=== PATIENT | female | born 1960 | race Caucasian/White ===

== ENCOUNTER → 2019-02-23 | Outpatient (REF) | payer OTHER ==
[~2019-02-23] MED LIST: CITA40TA4 PO; COLA100C5 PO; FERR325T3 PO; IBUP600T42 PO; LEVO75TA4 PO; OMEP20TA PO; SUMA100T2 PO; VICO5TAB17 PO; thyroxine OR
== END ==
LOC: M LABCFH 08:14 → M LAB REF 02-26 11:14
DX: R39.89 Other symptoms and signs involving the genitourinary system (principal)

== ENCOUNTER → 2019-02-24 | Outpatient (REF) | payer OTHER | LOC: M LABCFH 13:18 | PROVIDERS: ATTEND Registered Nurse | DX: R31.9 Hematuria, unspecified (principal) ==

== ENCOUNTER → 2021-04-03 | Outpatient (CLI) | payer OTHER ==
[~2021-04-03] MED LIST changes: +GLUCAGON INJ 1MG VIAL As Ordered ONE; +ISOVUE-370 76% 100ML VIAL As Ordered ONE; +OMEP-358 PO; -OMEP20TA PO; +VoLumen 0.1% SUSPENSION 450ML BOTTLE As Ordered ONE
--- NOTE | 2021-04-03 14:29 | REP ---
INDICATION: CELIAC DX, OTH FECAL ABNORMALITIES COMPARISON: None. TECHNIQUE: CT Scan of the abdomen and pelvis was performed with intravenous administration of 100 cc of Isovue 370, and volumen oral contrast. Sagittal and coronal reconstruction images are performed. FINDINGS: Lung bases: Unremarkable. There is a small hiatal hernia. Liver: There is diffuse fatty infiltration of the liver. Gallbladder: There has been a prior cholecystectomy. Spleen: Normal. Adrenals: Normal. Pancreas: Normal. Kidneys: Normal. Small and large bowel: Unremarkable. No mucosal abnormalities are seen. There is no bowel wall thickening or inflammation. Free fluid: None. Abdominal aorta: No aneurysm or dissection. Adenopathy: None. Appendix: Not inflamed. Osseous structures: There is spondylolysis of L5 with mild anterior grade 1 spondylolisthesis of L5 on S1. There are degenerative changes at the L5-S1 disc space. Pelvis: No mass. Prior hysterectomy. IMPRESSION: Small hiatal hernia. Diffuse fatty infiltration of the liver. No bowel wall or mucosal abnormalities identified. <Electronically signed by Freddie Brewer > 04/03/21 [id number]
== END ==
LOC: M RAD 12:20
PROVIDERS: ATTEND Internal Medicine Gastroenterology
DX: K90.0 Celiac disease (principal); R19.5 Other fecal abnormalities
CPT/HCPCS: 74177; J1610; Q9967

== ENCOUNTER → 2021-04-09 | Outpatient (CLI) | payer OTHER ==
[~2021-04-09] MED LIST changes: -GLUCAGON INJ 1MG VIAL As Ordered ONE; -ISOVUE-370 76% 100ML VIAL As Ordered ONE; -VoLumen 0.1% SUSPENSION 450ML BOTTLE As Ordered ONE
--- NOTE | 2021-04-09 14:31 | REP ---
INDICATION: GASTROPARESIS, EPIGASTRIC PAIN. COMPARISON: None. TECHNIQUE/RADIOTRACER AND DOSE: Following the intravenous administration of 1.03 mCi technetium 99 M sulfur colloid in 2 scrambled eggs and 10 oz of water, multiple images of the upper abdomen are performed in the anterior and posterior projections for 90 minutes. FINDINGS: The gastric activity is measured. At the end of 90 minutes 34% of the ingested activity has emptied from the stomach. The T1/2 is 138 minutes which is mildly increased. IMPRESSION: Mildly delayed gastric emptying. <Electronically signed by Freddie Brewer > 04/09/21 [id number]
== END ==
LOC: M RAD 11:42
PROVIDERS: ATTEND Internal Medicine Gastroenterology
DX: R10.13 Epigastric pain (principal); K31.84 Gastroparesis
CPT/HCPCS: 78264; A9541